=== PATIENT | female | born 1975 | race Caucasian/White ===

== ENCOUNTER 2016-03-16 16:21 | Outpatient (CLI) ==
[2012-08-22 16:47] VITALS: TEMP 97.9
[2016-03-06 14:17] VITALS: BMI 30.7
== END 2016-03-16 16:22 | disposition home or self-care (01) ==
LOC: LAB 16:21
PROVIDERS: ATTEND Nurse Practitioner Family
DX: J02.9 Acute pharyngitis, unspecified (principal)
CPT/HCPCS: 87880

== ENCOUNTER 2016-06-16 12:06 | Emergency (ER) ==
[2016-06-16 12:21] VITALS: BP 105/70; TEMP 98.3; BMI 32.2
--- NOTE | 2016-06-16 13:57 | DI ---
EXAM: Radiographs, right wrist HISTORY: Right wrist pain. COMPARISON: None available. TECHNIQUE: Three-view. FINDINGS: Bone mineralization is normal. There is no fracture or dislocation. The joint spaces ar e maintained. No focal soft tissue abnormality is seen. IMPRESSION: No fracture or dislocation.
--- NOTE | 2016-06-16 14:45 | ED.PDOC ---
General ED Provider: Dr. JOSE PÉREZ Chief Complaint: Wrist Pain/Injury Stated Complaint: right wrist pain Time Seen by Physician: 00:10 Mode of Arrival: Walk-In Information Source: Patient Exam Limitations: No limitations Nursing and Triage Documentation Reviewed and Agree: Yes Musculoskeletal Complaint Exam - Hand/Wrist Complaint/Exam Location of Pain: Reports: Right, Wrist Mechanism of Injury: Reports: Trauma (blunt force) Symptoms Are: Still present Onset of Pain: Reports: Hours Initial Severity: Moderate Current Severity: Moderate Location: Reports: Discrete Character: Reports: Aching Alleviating: Reports: Rest Aggravating: Reports: Movement Associated Signs and Symptoms: Denies: Swelling, Redness, Bruising, Fever, Weakness, Numbness, Tingling Dominant Hand: Right Related Surgical History: Reports: None Tenderness: Present: Radius. Absent: Ulna, Snuff box, Carpal, Metacarpal, Phalanx Compartment Syndrome Risk Factors: Present: Pain Differential Diagnoses: Closed Fracture, Sprain, Strain Review of Systems - Review Of Systems Constitutional: Reports: No symptoms Eyes: Reports: No symptoms Ears, Nose, Mouth, Throat: Reports: No symptoms Respiratory: Reports: No symptoms Cardiac: Reports: No symptoms GI: Reports: No symptoms : Reports: No symptoms Musculoskeletal: Reports: Joint pain (wrist) Skin: Reports: No symptoms Neurological: Reports: No symptoms Endocrine: Reports: No symptoms Hematologic/Lymphatic: Reports: No symptoms All Other Systems: Reviewed and Negative Past Medical History - Past Medical History Endocrine: Reports: None Cardiovascular: Reports: None Respiratory: Reports: None Hematological: Reports: None Gastrointestinal: Reports: None Genitourinary: Reports: None Neuro/Psych: Reports: None Musculoskeletal: Reports: None Cancer: Reports: None Last Menstrual Period: 05/26 - Surgical History General Surgical History: Reports: - Family History Family History: Reports: None - Social History Smoking Status: Former smoker Hx Substance Use: No Alcohol Screening: None - Immunizations Tetanus Shot up to Date: Yes Physical Exam - Physical Exam Appearance: Well-appearing, No pain distress, Well-nourished Eyes: GONZALO, EOMI, Conjunctiva clear ENT: Ears normal, Nose normal, Oropharynx normal Respiratory: Airway patent, Breath sounds clear, Breath sounds equal, Respirations nonlabored Cardiovascular: RRR, Pulses normal, No rub, No murmur GI/: Soft, Nontender, No masses, Bowel sounds normal, No Organomegaly Musculoskeletal: Limited ROM (wrist right) Skin: Warm, Dry, Normal color Neurological: Sensation intact, Motor intact, Reflexes intact, Cranial nerves intact, Alert, Oriented Psychiatric: Affect appropriate, Mood appropriate Interpretation - Radiology Interpretation Radiology Interpretation By: Radiologist Radiology Results: No acute changes Critical Care Note - Critical Care Note Total Time (mins): 0 Course - Course Orders, Labs, Meds: Orders Category Date Time Status WRIST, RIGHT 3 VIEWS Stat RADS 06/16/16 13:19 Completed Vital Signs: Temp Pulse Resp BP Pulse Ox 06/16/16 12:06 98.3 F 83 16 105/70 98 Departure - Departure Time of Disposition: 14:45 Disposition: HOME SELF-CARE Discharge Problem: Pain in wrist Sprain of wrist Qualifiers: Encounter type: initial encounter Laterality: right Qualifier Code: (S63.501A) Unspecified sprain of right wrist, initial encounter Instructions: Wrist Sprain (ED) Condition: Good Pt referred to PMD for follow-up: No Allergies/Adverse Reactions: Allergies aspirin Adverse Reaction (Intermediate, Verified 06/16/16 13:06) Anaphylaxis DIFF BREATHING Home Medications: Ambulatory Orders Multivitamin W/Iron, Minerals [Flintstones Complete] 2 each PO DAILY 08/22/12 Disposition Discussed With: Patient
== END 2016-06-16 15:03 | disposition home or self-care (01) ==
LOC: ED 12:06
DX: S63.501A Unspecified sprain of right wrist, initial encounter (principal); W22.8XXA Striking against or struck by other objects, initial encounter
CPT/HCPCS: 99282